=== PATIENT | female | born 1995 | race American Indian/Alaskan Native ===

== ENCOUNTER 2023-08-24 20:29 | Emergency (ER) | payer OTHER, SELFPAY ==
[2023-08-24 20:30] VITALS: BMI 20.1
[2023-08-24 21:15] LABS: Hematocrit 40.7 % (37.0-47.0); Hemoglobin 13.6 g/dL (12.0-16.0); Mean Corp Hgb Conc. 33.4 g/dL (33.0-37.0); Mean Corpuscular Hgb 29.1 pg (27.0-31.0); Mean Corpuscular Volume 87.2 fL (81.0-99.0); Mean Platelet Volume 11.1 fL (7.4-10.4); Platelet Count 308 10^3/uL (130-400); Red Blood Cell Count 4.67 10^6/uL (4.20-5.40); Red Cell Dist. Width 12.5 % (11.5-14.5); White Blood Cell Count 9.1 10^3/uL (4.8-10.8)
[2023-08-24 21:31] LABS: Blood Urea Nitrogen 11 mg/dl (7-17); Calcium 9.7 mg/dl (8.4-10.2); Carbon Dioxide 23 mmol/L (22-30); Chloride 103 mmol/L (98-107); Glucose 116 mg/dl (70-99); Sodium 133 mmol/L (135-145); eGFR > 60.00
--- NOTE | 2023-08-24 23:03 | ED.GENMED ---
History of Present Illness
<MARIA R Garcia - Last Filed: 08/24/23 23:25>
General
Chief Complaint: Headache
Source: patient
Exam Limitations: none
Time Seen by Provider: 08/24/23 22:59
Nursing documentation reviewed up to this point in time: agreed with
Travel History
Have you had any contact with someone who has COVID-19?: No
Do you have any symptoms of coronavirus? Fever > 100 degrees, chills, cough, shortness of breath, sore throat, loss of taste or smell, muscle aches, or headache?: No
History of Present Illness
History of Present Illness:
patient is a 28 y/o female with PMH of migraines presenting with L sided ORTIZ x 7 hours. Patient admits that she has a history of migraines but she has never felt one like this prior. patient admits the pain is a throbbing pain. Patient admits to
tingling that is unilateral on the same side of her face as the ORTIZ. Patient admits to history of vasovagal syncope that makes her feel weak which she claims she is feeling. Patient admits to vomitting multiple times today since the onset of ORTIZ.
Patient denies eating or drinking anything in the last few hours. Patient admits to photophobia and clamminess. Patient states that she has been having neck stiffness since onset of ORTIZ. Patient has more pain with extension of neck. Patient shows no
tenderness to palpation in the neck. patient denies fever, syncope, CP, SOB, numbness. Patient is currently on fluconazole for a chronic yeast infection.
Past History
<MARIA R Garcia - Last Filed: 08/24/23 23:25>
Past History
ED Past Medical History: Other (migraines)
Review of Systems
<MARIA R Garcia - Last Filed: 08/24/23 23:25>
Review of Systems
All Other Systems: Not applicable
Constitutional: Reports no symptoms
EENT: Reports tearing
Respiratory: Reports no symptoms
Cardiac: Reports no symptoms
ABD/GI: Reports nausea, vomiting and anorexia
: Reports no symptoms
Musculoskeletal: Reports neck pain
Skin: Reports no symptoms
Neurological: Reports dizzy, headache, weakness and other (tingling of the face )
Endocrine: Reports no symptoms
Hematologic/Lymphatic: Reports no symptoms
Psychiatric: Reports no symptoms
Phy Exam
<MARIA R Garcia - Last Filed: 08/24/23 23:25>
General Physical Exam
General Presentation: well appearing and no apparent distress
General Skin: warm and dry
General Habitus: normal
General Mental: alert
General Hydration: appears well hydrated
ENT Exam
ENT Exam: EOMI, pharynx normal, neck supple and normocephalic
Eye Exam
Eye Exam: EOMI and visual daly normal
Cardiovascular Exam
Cardiovascular Exam: regular rate/rhythm, no edema, no murmur and normal peripheral pulses
Pulmonary Exam
Pulmonary Exam: lungs clear, no respiratory distress, no rales, no crackles, no rhonchi, no stridor, no wheezing and no cough
Gastrointestinal Exam
Gastrointestinal Exam: normal bowel sounds, non tender, soft, no organomegaly, no pulsatile mass and non distended
Neurological Exam
Neurological Exam: alert, oriented x3, no motor deficits and speech normal
Musculoskeletal Exam
Musculoskeletal Exam: neck pain and other (decreased ROM of neck in extension )
Skin Exam
Skin Exam: normal color, warm/dry, no rash and no petechia
Psychiatric Exam
Psychiatric Exam: normal mood/affect
Course
<MARIA R Garcia - Last Filed: 08/24/23 23:25>
Orders/Labs/Results
Orders:
Orders
08/24/23 20:56
BMP [Basic Metabolic Panel] Urgent
Complete Blood Count/No Diff Urgent
HCG, Serum Qualitative Screen Urgent
Comment: ADD ON
08/24/23 23:34
Add On- LAB Urgent
Tests Added?: serum hcg
08/25/23 00:00
CT Head Angio W/wo Iv Contrast Urgent
Reason For Exam: Severe left sided ortiz
08/25/23 00:39
0.9% Sodium Chloride 1000 ml [Nss] 1,000 ml IV BOLUS
Dexamethasone Sod Phosphate [Decadron] 10 mg IV NOW STA
Diphenhydramine [Benadryl] 25 mg IV NOW STA
Ketorolac [Toradol] 15 mg IV NOW STA
Metoclopramide [Reglan] 5 mg IV NOW STA
Abnormal Lab Results
08/24/23
20:56
MPV 11.1 H fL
(7.4-10.4)
Sodium 133 L mmol/L
(135-145)
Glucose 116 H mg/dl
(70-99)
08/24/23 20:56
08/24/23 20:56
Vital Signs
Initial and Last Documented VS:
Initial Vital Signs
Temp Pulse Resp Pulse Ox
98.2 F 94 18 100
08/24/23 20:44 08/24/23 20:44 08/24/23 20:44 08/24/23 20:44
Last Documented Vital Signs
Temp Pulse Resp BP Pulse Ox
98.2 F 78 19 93/60 97
08/24/23 20:44 08/25/23 03:00 08/25/23 03:00 08/25/23 03:00 08/25/23 03:00
[place];Blair De La Fuente, DO - Last Filed: 08/25/23 04:28>
Orders/Labs/Results
Orders:
Orders
08/24/23 20:56
BMP [Basic Metabolic Panel] Urgent
Complete Blood Count/No Diff Urgent
HCG, Serum Qualitative Screen Urgent
Comment: ADD ON
08/24/23 23:34
Add On- LAB Urgent
Tests Added?: serum hcg
08/25/23 00:00
CT Head Angio W/wo Iv Contrast Urgent
Reason For Exam: Severe left sided ortiz
08/25/23 00:39
0.9% Sodium Chloride 1000 ml [Nss] 1,000 ml IV BOLUS
Dexamethasone Sod Phosphate [Decadron] 10 mg IV NOW STA
Diphenhydramine [Benadryl] 25 mg IV NOW STA
Ketorolac [Toradol] 15 mg IV NOW STA
Metoclopramide [Reglan] 5 mg IV NOW STA
Abnormal Lab Results
08/24/23
20:56
MPV 11.1 H fL
(7.4-10.4)
Sodium 133 L mmol/L
(135-145)
Glucose 116 H mg/dl
(70-99)
08/24/23 20:56
08/24/23 20:56
Vital Signs
Initial and Last Documented VS:
Initial Vital Signs
Temp Pulse Resp Pulse Ox
98.2 F 94 18 100
08/24/23 20:44 08/24/23 20:44 08/24/23 20:44 08/24/23 20:44
Last Documented Vital Signs
Temp Pulse Resp BP Pulse Ox
98.2 F 78 19 93/60 97
08/24/23 20:44 08/25/23 03:00 08/25/23 03:00 08/25/23 03:00 08/25/23 03:00
[place];MARIA R Garcia - Last Filed: 08/24/23 23:25>
MDM/Problems Addressed
Differential Diagnosis Includes:
migraine
SAH
cluster ORTIZ
meningitis
MDM/Problems Addressed:
L sided ORTIZ x 7 hours
Chronic conditions affecting care: Neurological disorder (migraines)
<MARIA R Garcia - Last Filed: 08/24/23 23:25>
*Critical Care Note
Total Time (30-74mins, 75-104mins- exclusive of procedures): Not Applicable
<Blair De La Fuente DO - Last Filed: 08/25/23 04:28>
Update Note
Update Note:
CT HEAD
CTA [place] [facility] [place]
IMPRESSION:
NON CON HEAD
No acute intracranial hemorrhage, herniation or hydrocephalus.
No definite CT evidence of acute large territorial ischemia at this time.
Elective MRI could be used for more sensitive detection of hyperacute/acute infarction if clinically indicated.
CTA
No large vessel occlusion.
No high grade stenosis in the intracranial arteries.
No evidence for aneurysm.
Dural venous sinuses are patent.
Case finalized at 348am ET
ED Attending Note
<MARIA R Garcia - Last Filed: 08/24/23 23:25>
-
Portions of this chart may have been created with voice recognition software.� Occasional wrong word or��sound alike� substitutions may have occurred due to the inherent limitations of voice recognition software.
<Blair De La Fuente DO - Last Filed: 08/25/23 04:28>
ED Attending Note
Patient seen and examined by attending physician: Yes
I performed the substantive portion of visit, reviewed & personally made and approve the management plan that is documented in note by myself or ZAN.: Yes
ED Attending Note:
This is a pleasant 28-year-old female presents with headache and vomiting. 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 She does have a history of headaches but this headache is more severe than typical.
She states that for the last 7 hours she has had throbbing pain. She also reports tingling on the left side of her face. She has a history of vasovagal syncope but states that she is able to control this. Patient concerned that she is dehydrated
as she has not been able to eat or drink. Patient has had some left-sided neck stiffness but states that she is able to move her neck. Patient was seen in conjunction with the PA student. I have reviewed and agree with the history and treatment
plan presented. On my independent physical exam, patient is awake, alert, and oriented x3, mild to moderate acute distress. No nuchal rigidity. No meningeal signs noted. Patient is moving her neck freely while communicating. Pupils equal round
reactive to light and accommodation. Funduscopic exam is normal. There is no vertical or horizontal nystagmus. She does have muscle spasm on the left side of her neck. Heart is regular rate and rhythm. Lungs are clear to auscultation
bilaterally without wheezes rales or rhonchi present. She is mentating appropriately. She is a good historian.
Plan is CT angio of the head.
CT angio of the head is negative. Went in to see patient to discuss the results and she stated that she was feeling much better. She had slept for much of the time since she has been here. She states that her symptoms have resolved and she wishes
to be discharged home. She did not not wish to have further testing. She refuses LP at this time. I am in agreement. Patient being discharged home in improved condition. She will follow-up with our neurologist as needed.
Discharge Plan
Departure
Patient Disposition: Home (Routine Discharge)
Date of Disposition: 08/25/23
Time of Disposition: 04:27
Patient with high blood pressure during this ER visit?: No
Condition: Good
Discharge Problem:
Migraine
Instructions: Migraines (DC), Headache, Adult (DC)
Referrals:
Felice Harding MD [Family Provider] -
Activity Restrictions/Additional Instructions:
It was a pleasure meeting you and taking part in your care. We hope for your continued healing and wellness.
Please read discharge instructions in their entirety. However, they are for general education and may not describe your exact diagnosis at discharge. Information on your ER visit and medical conditions were discussed with you along with appropriate
follow up information...
If indicated, please take your medications as instructed and indicated on discharge paperwork.
Please schedule a follow up appointment as directed. Call to schedule an appointment
Please return to the emergency department with ANY change in, persisting, or worsening of symptoms. If any of your symptoms do not improve, or persist, or become more severe within 6-12 hours, please return to the emergency department for further
care.
Please return to the emergency department if you develop a headache, neck pain/stiffness, fever greater than 100.4F, chest pain, shortness of breath, persistent nausea, vomiting, slurred speech, difficulty walking, numbness/tingling, weakness, signs
of infection or any other symptoms that are worrisome to you.
If you have any questions or concerns please do not hesitate to call the Hospital at or E-mail me directly at [email or web address]
Interventions
Interventions:
*Risk Screen - Suicide Last Done: 08/24/23 20:44
*General Assessment Last Done: 08/24/23 20:44
*Neglect/Abuse Screening Last Done: 08/24/23 20:44
ED- Fall Risk Assessment Last Done: 08/24/23 20:44
*ED COVID-19 Vaccine History Last Done: 08/24/23 20:44
ED- Neurological Assessment Last Done: 08/25/23 00:00
[2023-08-24 23:17] VITALS: BP 105/77
[2023-08-25] VITALS: BP 108/70
[2023-08-25 00:23] LABS: HCG, Serum Qualitative Screen Negative
[2023-08-25 01:00] VITALS: BP 107/64
[2023-08-25] MEDS: BENADRYL 25 MG IV (01:01)
[2023-08-25] MEDS: DECADRON 10 MG IV (01:03)
[2023-08-25] MEDS: REGLAN 5 MG IV (01:05)
[2023-08-25] MEDS: TORADOL 15 MG IV (01:07)
[2023-08-25] MEDS: NSS 1000 IV (01:10)
[2023-08-25 02:42] VITALS: BP 102/71
[2023-08-25 03:00] VITALS: BP 93/60
[2023-08-25 04:00] VITALS: BP 85/57
== END 2023-08-25 04:44 | disposition home or self-care (01) ==
LOC: EMR 20:29
PROVIDERS: Emergency Medicine; EMERGENCY PHYSICIAN Student in an Organized Health Care Education/Training Program; FAMILY PHYSICIAN Internal Medicine
DX: G43.909 Migraine, unspecified, not intractable, without status migrainosus (principal); M62.838 Other muscle spasm
CPT/HCPCS: 99284; 96374; 96375 ×3; 96361; 70496; 80048; 84703; 85027; Q9967